=== PATIENT | male | born 1940 | race Caucasian/White ===

== ENCOUNTER → 2021-12-15 10:27 | Outpatient (BNVA) | payer MEDICARE, SELFPAY | PROVIDERS: PCP Student in an Organized Health Care Education/Training Program; Referring Provider Student in an Organized Health Care Education/Training Program; Visit Provider Anesthesiology Pain Medicine | DX: M47.816 Spondylosis without myelopathy or radiculopathy, lumbar region (principal); M48.062 Spinal stenosis, lumbar region with neurogenic claudication; M79.604 Pain in right leg; M79.605 Pain in left leg; Z87.891 Personal history of nicotine dependence; Z79.891 Long term (current) use of opiate analgesic | CPT/HCPCS: 99204 ==

== ENCOUNTER 2022-01-22 09:50 | Outpatient (CLI) | payer MEDICARE, SELFPAY ==
--- NOTE | 2022-01-22 10:15 | MR_ITS ---
WS: [id number] MRI LUMBAR SPINE NONCONTRAST TECHNIQUE: Sagittal T1, T2 and STIR imaging. Axial T1 and T2 imaging. CLINICAL INFORMATION: M48.062 - Spinal stenosis, lumbar region with neurogenic ... COMPARISON: FINDINGS: Mild lumbar curve. No acute compression. Slight retrolisthesis L2 on L3. Slight anterolisthesis L4 on L5. Small disc protrusions L3-L4 L4-L5. Mild central canal stenosis in the cervical spine user experience architect imaging at C5-C6 with slight retrolisthesis a nd mild disc bulging. L1-L2: Slight retrolisthesis. Mild disc bulging with osteophytic ridging. Impingement RIGHT subarticu lar recess. Moderate facet arthropathy. Mild RIGHT foraminal narrowing. L2-L3: Slight retrolisthesis L2 on L3. Moderate narrowing of the thecal sac due to disc osteophyte co mplex in combination with facet arthropathy ligament flavum hypertrophy. Prominent dorsal epidural fa t. Impingement traversing L3 nerve roots. Moderate LEFT and mild RIGHT bony foraminal narrowing. L3-L4: Mild disc bulging and osteophytic ridging. Moderate to severe central canal stenosis. Impingem ent on the traversing L4 nerve roots. Moderate facet arthropathy ligamentum flavum hypertrophy. Promi nent dorsal epidural fat. Moderate LEFT and mild RIGHT bony foraminal narrowing. L4-L5: Grade 1 anterolisthesis. Moderate to severe central canal stenosis due to disc bulging with fa cet arthropathy and ligamentum flavum hypertrophy. Impingement traversing L5 nerve roots. Moderate fa cet arthropathy. Mild RIGHT foraminal narrowing. L5-S1: Mild disc bulging with osteophytic ridging. Slight narrowing of the RIGHT subarticular recess. Mild facet arthropathy. Spinal canal and foramen are patent. Visualized pelvic bony structures: Normal. Paravertebral soft tissues: Normal. MR/MR lumbar spine wo con* [id number] IMPRESSION: 1. Mild lumbar curve. No acute compression. 2. Moderate central canal stenosis L2-L3. Moderate to severe central canal meño nosis L3-L4 and L4-L5 due to disc bulging with facet arthropathy and ligamentum flavum hypertrophy. Prominent dorsal epidural fat L2-L3 contributes to stenosi s. 3. Mild to moderate foraminal narrowing worse at RIGHT L1-L2, LEFT L2-L3, LEFT L3-L4, RIGHT L4-L5. 4. Moderate facet arthropathy L3-L4 L4-L5 and L5-S1. 5. Mild central canal stenosis in the cervical spine at C5-C6 as described abo shukri.
== END 2022-01-22 09:51 | disposition home or self-care (01) ==
LOC: RAD 09:51
PROVIDERS: PCP Student in an Organized Health Care Education/Training Program; Visit Provider Anesthesiology Pain Medicine
DX: M48.062 Spinal stenosis, lumbar region with neurogenic claudication (principal)
CPT/HCPCS: 72148

== ENCOUNTER → 2022-02-02 09:16 | Outpatient (BNVA) | payer MEDICARE, SELFPAY | PROVIDERS: PCP Student in an Organized Health Care Education/Training Program; Visit Provider Anesthesiology Pain Medicine | DX: M48.062 Spinal stenosis, lumbar region with neurogenic claudication (principal); M47.816 Spondylosis without myelopathy or radiculopathy, lumbar region; M79.604 Pain in right leg; M79.605 Pain in left leg; Z87.891 Personal history of nicotine dependence; Z79.891 Long term (current) use of opiate analgesic | CPT/HCPCS: 99215 ==

== ENCOUNTER → 2024-10-09 14:46 | Outpatient (BNVA) | payer MEDICARE, SELFPAY | PROVIDERS: PCP Family Medicine; Visit Provider Dermatology | DX: L82.1 Other seborrheic keratosis (principal); Z85.820 Personal history of malignant melanoma of skin; Z08 Encounter for follow-up examination after completed treatment for malignant neoplasm; Z85.828 Personal history of other malignant neoplasm of skin; C44.629 Squamous cell carcinoma of skin of left upper limb, including shoulder; L57.0 Actinic keratosis | CPT/HCPCS: 17000; 17262; 99213 ==

== ENCOUNTER → 2025-05-11 14:42 | Outpatient (BNVA) | payer MEDICARE, SELFPAY | PROVIDERS: PCP Family Medicine; Visit Provider Nurse Practitioner Family | DX: L21.8 Other seborrheic dermatitis (principal); Q80.0 Ichthyosis vulgaris; I87.2 Venous insufficiency (chronic) (peripheral); L73.8 Other specified follicular disorders; D69.2 Other nonthrombocytopenic purpura; L82.1 Other seborrheic keratosis; Z85.820 Personal history of malignant melanoma of skin; Z08 Encounter for follow-up examination after completed treatment for malignant neoplasm; Z85.828 Personal history of other malignant neoplasm of skin | CPT/HCPCS: 99214 ==